=== PATIENT | male | born 1935 | race Caucasian/White ===

== ENCOUNTER 2017-02-13 12:40 | Inpatient (IN) | payer OTHER ==
[2017-02-13 12:46] VITALS: BMI 26.6
[2017-02-13] MEDS ORDERED: SODIUM CHLORIDE 500 ML IV STA ×2 (12:57→13:46)
--- NOTE | 2017-02-13 13:01 | PDOC ---
History of Present Illness - General Chief Complaint: Urinary Problem Stated Complaint: URINE RETENTION Time Seen by Provider: 02/13/17 12:52 History Source: Patient, Family - History of Present Illness Timing/Duration: reports: constant Past History - Past Medical History Allergies/Adverse Reactions: Allergies Allergy/AdvReac Type Severity Reaction Status Date / Time No Known Drug Allergies Allergy Verified 02/13/17 12:46 Home Medications: Ambulatory Orders Metformin HCl [Glucophage] 500 mg PO DAILY 09/04/14 Metoprolol Tartrate 50 mg PO DAILY 09/04/14 Omeprazole [Prilosec] 40 mg PO DAILY 09/04/14 Tamsulosin HCl 0.4 mg PO DAILY 09/04/14 Anemia: No Asthma: No Cancer: No Cardiac Disorders: No CVA: No COPD: No CHF: No Dementia: No Diabetes: Yes GI Disorders: Yes (REFLUX) Disorders: No HTN: Yes Hypercholesterolemia: No Liver Disease: No Seizures: No Thyroid Disease: No - Surgical History Abdominal Surgery: No Appendectomy: No Cardiac Surgery: No Cholecystectomy: No Lung Surgery: No Orthopedic Surgery: No - Psycho/Social/Smoking Cessation Hx Suicidal Ideation: No Smoking History: Never smoked Have you smoked in the past 12 months: No Hx Alcohol Use: No Drug/Substance Use Hx: No Substance Use Type: None Hx Substance Use Treatment: No Review of Systems - Review of Systems Constitutional: No: Chills, Fever ABD/GI: No: Nausea, Vomiting, Abdominal cramping : No: Dysuria, Flank Pain, Hematuria *Physical Exam - Vital Signs Last Vital Signs Temp Pulse Resp BP Pulse Ox 99.0 F 116 H 20 156/67 96 02/13/17 12:41 02/13/17 12:41 02/13/17 12:41 02/13/17 12:41 02/13/17 12:41 - Physical Exam General Appearance: Yes: Appropriately Dressed. No: Apparent Distress HEENT: positive: Normal Voice Neck: positive: Supple Respiratory/Chest: negative: Respiratory Distress Gastrointestinal/Abdominal: positive: Soft. negative: Tender, Distended Musculoskeletal: negative: CVA Tenderness Extremity: positive: Normal Inspection Integumentary: positive: Dry, Warm Neurologic: positive: Fully Oriented, Alert, Normal Mood/Affect ED Treatment Course - LABORATORY CBC & Chemistry Diagram: 02/13/17 11:50 02/13/17 11:50 Medical Decision Making - Medical Decision Making 02/13/17 12:58 81 yo M, h/o HTN, DM, BPH on flomax, BIB daughter for urinary retention. As per patient, for the past 2 days he has been able to urinate but only a small amount comes out and finds himself urinating more frequently. No hematuria, flank pain, nausea, vomiting, fever or chills see exam Urinary retention Possibly 2/2 known h/o BPH, r/o uti -bedolla insertion -labs -ua.cx -discuss dispo w/ pt's urologist 02/13/17 13:18 02/13/17 13:55 100 cc UO w/ bedolla placement. Leukocytosis of 20 with leuk esterase, blood and proteins on UA. Urine culture sent. Will treat for UTI with a dose of Rocephin (no prior sensitivity on record) in ED and discuss disposition with patient's PMD and urologist 02/13/17 14:31 02/13/17 17:34 Dr Maria contacted at 2:30 and at this time, have not heard back from . Hospitalist contacted and pt admitted. 02/13/17 17:43 *DC/Admit/Observation/Transfer Diagnosis at time of Disposition: Urinary retention UTI (urinary tract infection) Qualifiers: Urinary tract infection type: acute cystitis Hematuria presence: without hematuria Qualified Code(s): N30.00 - Acute cystitis without hematuria - Discharge Dispostion Condition at time of disposition: Good Admit: Yes - Referrals Referrals: Willie Ohara MD [Primary Care Provider] -
[2017-02-13 13:17] LABS: MCHC 33.4 g/dl (32.0-35.9); MEAN CELL VOLUME 89.7 fl (80-96); MEAN PLT VOLUME 8.3 fl (7.5-11.1); PLATELET COUNT 205 K/MM3 (134-434); RDW 13.4 % (11.9-15.9); WHITE BLOOD COUNT 20.7 K/mm3 (4.0-10.0)
[2017-02-13 13:25] LABS: URINE APPEARANCE CLOUDY; URINE BILIRUBIN NEGATIVE (NEGATIVE); URINE BLOOD 2+ (NEGATIVE); URINE COLOR YELLOW; URINE GLUCOSE (UA) NEGATIVE (NEGATIVE); URINE KETONE NEGATIVE (NEGATIVE); URINE NITRITE NEGATIVE (NEGATIVE); URINE UROBILINOGEN NEGATIVE mg/dL (0.2-1.0)
[2017-02-13 13:30] LABS: URINE LEUK ESTERASE 2+ (NEGATIVE); URINE PROTEIN 1+ (NEGATIVE)
[2017-02-13 13:32] LABS: URINE BACTERIA RARE /hpf (NONE SEEN); URINE MUCUS RARE; URINE RBC 2 /hpf (0-3); URINE WBC 60 /hpf (3-5)
[2017-02-13 13:50] LABS: ALBUMIN 3.6 g/dl (3.4-5.0); ANION GAP 13 (8-16); CALCIUM 8.9 mg/dL (8.5-10.1); CO2 26 mmol/L (21-32); GLUCOSE,RANDOM 192 mg/dL (74-106)
[2017-02-13 13:54] LABS: ALK PHOS 76 U/L (45-117); BILIRUBIN,TOTAL 0.8 mg/dL (0.2-1.0); CREATININE 1.4 mg/dL (0.7-1.3); SGOT/AST 31 U/L (15-37); SGPT/ALT 35 U/L (12-78); TOT PROT 7.4 g/dl (6.4-8.2)
[2017-02-13] MEDS ORDERED: CEFTRIAXONE 1 GM in DEXTROSE 5%-WATER - 50 ML IVPB ONE (13:55)
[2017-02-13] MEDS ORDERED: CEFTRIAXONE 50 ML ONE (14:04)
[2017-02-13 14:15] LABS: METAMYELOCYTE 2 % (0-2); PLATELET ESTIMATE ADEQUATE (NORMAL)
--- NOTE | 2017-02-13 19:57 | HP ---
Admitting History and Physical - Admission Chief Complaint: urine retention, dysuria History of Present Illness: 81 yo somali speaking M, h/o HTN, DM, BPH on flomax, BIB daughter for urinary retention. Pt reports dysuira x 3 days. he report bilateral flank pain. he reports subj fevers, chills, and rigors. he reports bladder pressure. he reports decreased po intake for 3 days. he denies n/v/d, cough, body aches, sore throat. he denies sob, chest pain, tingling, edema. he denies syncope. he reports following dr shashank baird (urology). pmh/psh- HTN, DM, BPH social- denies alcohol, tobacco. lives with family famhx- mom- cancer(unk) pcp- dr puga urology- dr shashank baird ros neg except for hpi physical gen- in nad, alert hent- at/nc, neisha, neck supple, trachea mid-line, no lymphadenopathy resp- no cough, lung ctab, no ronchi, no wheeze, no cyanosis cards- s1s2 heard, tachy, normal rhythm, extremity pulses palpable, no leg edema gi- soft non-tender, no guarding, no distention, mild ttp over bladder, no rigidity - bedolla in place, scant tono urine in bag, no cvat skin-irregularly thickened lesion to lateral right buttocks with mild redness at base, no rashes psych- cooperative, no agitation neuro- alert oriented, no facial droop, speech clear, cn2-12 grossly intact. intentional hand tremors musk- no back pain, moving all ext spontaneously prob list sirs dm bph htn hyponatremia uti elevated cr ?urine retention a/p- 81 yo somali speaking M, h/o HTN, DM, BPH on flomax, BIB daughter for urinary retention found to have uti and admitted for eval of their emergent condition 1. uti, sirs follow up cultures ivf hydration cont abx (ctx) monitor labs 2. dm ssi f/s diabetic diet hold metformin 2/2 elevated cr 3. ?terrence possibly related to ?sepsis, ?obstructive uropathy fu renal us no prior labs for comparison follow up urine lytes monitor labs 4. bph, ?urinary retention fu urology consult cont flomax maintain bedolla 5. hyponatremia probably volume depletion +/- hyperglycemia pt reports decreased po intake x 3 days does no look overloaded on exam fu bmp 6. htn cont home meds dvt prophy scd, oob, hep sq fen gentle fluids, diabetic diet dispo- requires >2mn stay for uti, sepsis History Source: Patient, Family Member Limitations to Obtaining History: Language Barrier - Smoking History Smoking history: Never smoked Have you smoked in the past 12 months: No - Alcohol/Substance Use Hx Alcohol Use: No Home Medications - Allergies Allergies/Adverse Reactions: Allergies Allergy/AdvReac Type Severity Reaction Status Date / Time No Known Drug Allergies Allergy Verified 02/13/17 12:46 - Home Medications Home Medications: Ambulatory Orders Metformin HCl [Glucophage] 500 mg PO DAILY 09/04/14 Metoprolol Tartrate 50 mg PO DAILY 09/04/14 Omeprazole [Prilosec] 40 mg PO DAILY 09/04/14 Tamsulosin HCl 0.4 mg PO DAILY 09/04/14 Physical Examination Vital Signs: Vital Signs Temperature 98 F 02/13/17 16:59 Pulse Rate 98 H 02/13/17 16:59 Respiratory Rate 18 02/13/17 16:59 Blood Pressure 140/68 02/13/17 16:59 O2 Sat by Pulse Oximetry (%) 96 02/13/17 16:59 Visit type - Emergency Visit Emergency Visit: Yes ED Registration Date: 02/13/17 Care time: The patient presented to the Emergency Department on the above date and was hospitalized for further evaluation of their emergent condition. - New Patient This patient is new to me today: Yes Date on this admission: 02/14/17 - Critical Care Critical Care patient: No
[2017-02-13] MEDS ORDERED: ACETAMINOPHEN 325 MG TABLET (FP) PO PRN (20:03)
[2017-02-13] MEDS ORDERED: ONDANSETRON 4 MG/2 ML VIAL IVPB PRN (20:03)
[2017-02-13] MEDS ORDERED: SODIUM CHLORIDE 1,000 ML IV STA (20:13)
[2017-02-13] MEDS ORDERED: SODIUM CHLORIDE 1,000 ML IV SCH (20:15)
[2017-02-13] MEDS: INSULIN SLIDING SCALE (NOVOLOG) 1 VIAL SQ SCH (22:19)
[2017-02-13 22:20] LABS: ANION GAP 9 (8-16); CALCIUM 8.6 mg/dL (8.5-10.1); CO2 26 mmol/L (21-32); CREATININE 1.1 mg/dL (0.7-1.3); GLUCOSE,RANDOM 154 mg/dL (74-106)
[2017-02-14] MEDS: INSULIN SLIDING SCALE (NOVOLOG) 1 VIAL SQ SCH ×4 (06:54→21:47)
[2017-02-14 08:14] LABS: BASOPHIL 0.3 % (0-2.0); EOSINOPHIL 0.1 % (0-4.5); MCH 30.3 pg (25.7-33.7); MCHC 33.9 g/dl (32.0-35.9); MEAN CELL VOLUME 89.4 fl (80-96); PLATELET COUNT 184 K/MM3 (134-434); RDW 13.7 % (11.9-15.9); WHITE BLOOD COUNT 17.9 K/mm3 (4.0-10.0)
[2017-02-14 08:39] LABS: ANION GAP 10 (8-16); CALCIUM 8.2 mg/dL (8.5-10.1); CO2 26 mmol/L (21-32); GLUCOSE,RANDOM 104 mg/dL (74-106)
[2017-02-14 08:41] LABS: PHOSPHOROUS 2.3 mg/dL (2.5-4.9)
--- NOTE | 2017-02-14 08:51 | PN ---
Physical Exam: SUBJECTIVE: Patient seen and examined at the bedside. Denies any pain, shortness of breath or suprapubic discomfort. OBJECTIVE: Lactic acid 1.1 WBC trending down to 18.9 Remains afebrile Urine culture pending/blood cultures pending UA: +1 protein, +2 blood, +2 leuk est. Vital Signs Period Temp Pulse Resp BP Sys/Rutledge Pulse Ox Last 24 Hr 97.7 F-97.8 F 92-98 20-20 125-126/62-63 96 GENERAL: The patient is awake, alert, and fully oriented, in no acute distress. HEAD: Normal with no signs of trauma. EYES: PERRL, extraocular movements intact, sclera anicteric, conjunctiva clear. No ptosis. ENT: Ears normal, nares patent, oropharynx clear without exudates, moist mucous membranes. NECK: Trachea midline, full range of motion, supple. LUNGS: Scattered expiratory wheezing, patient denies shortness of breath - IVF stopped HEART: Regular rate and rhythm, S1, S2 without murmur ABDOMEN: Soft, nontender, nondistended, normoactive bowel sounds, no guarding, no rebound, no hepatosplenomegaly, no masses. EXTREMITIES: 2+ pulses, warm, well-perfused, no edema. NEUROLOGICAL:Normal speech, gait not observed. PSYCH: Normal mood, normal affect. SKIN: Warm, dry, normal turgor, no rashes or lesions noted Laboratory Results - last 24 hr 02/13/17 02/13/17 02/13/17 20:20 21:49 22:18 Sodium 132 L Potassium 4.0 Chloride 97 L Carbon Dioxide 26 Anion Gap 9 BUN 18 D Creatinine 1.1 D POC Glucometer 152 Random Glucose 154 H Lactic Acid 1.1 Calcium 8.6 Phosphorus Magnesium 02/14/17 02/14/17 06:20 06:53 Sodium 135 L Potassium 3.9 Chloride 99 Carbon Dioxide 26 Anion Gap 10 BUN 18 Creatinine 1.0 POC Glucometer 112 Random Glucose 104 D Lactic Acid Calcium 8.2 L Phosphorus 2.3 L Magnesium 2.0 Active Medications Generic Name Dose Route Start Last Admin Trade Name Freq PRN Reason Stop Dose Admin Acetaminophen 650 mg 02/13/17 20:03 Tylenol - PO Q4H PRN FEVER OR PAIN Heparin Sodium (Porcine) 5,000 unit 02/14/17 10:00 Heparin - SQ BID DELICIA Ceftriaxone Sodium 50 mls @ 100 mls/hr 02/14/17 10:00 Rocephin 1gm Ivpb (Pre-Docked) IVPB DAILY [facility] Sodium Chloride 1,000 mls @ 75 mls/hr 02/13/17 20:15 02/13/17 22:17 Normal Saline - IV 75 mls/hr ASDIR DELICIA Administration Insulin Aspart 1 vial 02/13/17 22:00 02/14/17 06:54 Novolog Vial Sliding Scale - SQ Not Given ACHS [facility] Protocol Metoprolol Succinate 50 mg 02/14/17 10:00 Toprol Xl - PO DAILY DELICIA Ondansetron HCl 4 mg 02/13/17 20:03 Zofran Injection IVPB Q6H PRN NAUSEA Pantoprazole Sodium 40 mg 02/14/17 10:00 Protonix - PO DAILY DELICIA Tamsulosin HCl 0.4 mg 02/14/17 10:00 Flomax - PO DAILY DELICIA ASSESSMENT/PLAN: Patient is a 81 year old male with a significant past medical history of hypertension, diabetes mellitus, and BPH. He presented to the ED on 02/13/2017 for urinary retention and was found to have UTI. On admission his lactic acid remained normal at 1.1, but WBC @ 20.7 and he was tachycardic at 116. Imaging: Chest Xray 02/14/17: no acute pathology, clear lungs, normal shane, normal heart Renal ultrasound 02/13/2017: negative exam : UTI/Sepsis: A/P: Elevated wbc on admission with tachycardia WBC trending down, now with mild tachycardia in 90s UA +protein, 2+ blood, cloudy urine, 2+leuk est. On Ceftriaxone (02/13- ) UC pending, blood cultures pending On Flomax Urology consult GISELA - resolved Creatinine 1.4>1.1, d/c ivf BPH A/P: On Flomax Sarmiento catheter Endocrine: Diabetes Mellitus A/P: Diabetic diet, monitor BGMs Novolog sliding scale Cardiology: Hypertension A/P: On Metoprolol, monitor BP F.E.N. Fluids: tolerating PO, d/c fluids secondary to scattered wheezing Electrolytes: NA 135, monitor Prophylaxis: DVT: Heparin Gi: Protonix Disposition: Requires inpatient hospitalization for acute condition. Full code.
[2017-02-14] MEDS ORDERED: CEFTRIAXONE 50 ML IVPB SCH (10:00)
[2017-02-14] MEDS ORDERED: DEXTROSE 5%-WATER - 50 ML IVPB ONE (10:28)
[2017-02-14] MEDS ORDERED: cefTRIAXone SODIUM 1 GM VIAL ONE (10:28)
[2017-02-14] MEDS: TAMSULOSIN HCL 0.4 MG CAP.ER.24H (FP) PO SCH (10:33)
[2017-02-14] MEDS: PANTOPRAZOLE 40 MG TABLET (FP) PO SCH (10:33)
[2017-02-14] MEDS: HEPARIN NA (PORCINE) 5,000 UNITS/ML 1ML VIAL SQ SCH ×2 (10:33→21:47)
[2017-02-14] MEDS: METOPROLOL SUCCINATE 50 MG TAB.SR.24H (FP) PO SCH (10:33)
[2017-02-14] MEDS: CEFTRIAXONE 1 GM in DEXTROSE 5%-WATER - 50 ML IVPB SCH (10:33)
--- NOTE | 2017-02-14 17:47 | EKG ---
Test Reason : Blood Pressure : / mmHG Vent. Rate : 097 BPM Atrial Rate : 097 BPM P-R Int : 180 ms QRS Dur : 086 ms QT Int : 334 ms P-R-T Axes : 064 024 039 degrees QTc Int : 424 ms NORMAL SINUS RHYTHM POSSIBLE LEFT ATRIAL ENLARGEMENT NONSPECIFIC ST ABNORMALITY BORDERLINE ECG NO PREVIOUS ECGS AVAILABLE Confirmed by ALEXANDR CHANDRA MD ([id number]) on 02/14/2017 5:46:56 PM Referred By: Confirmed By:ALEXANDR CHANDRA MD
[2017-02-15] MEDS: INSULIN SLIDING SCALE (NOVOLOG) 1 VIAL SQ SCH ×4 (06:57→21:11)
[2017-02-15 07:57] LABS: BASOPHIL 0.2 % (0-2.0); MCH 29.8 pg (25.7-33.7); MCHC 33.6 g/dl (32.0-35.9); MEAN CELL VOLUME 88.9 fl (80-96); NEUTROPHILS 76.1 % (42.8-82.8); PLATELET COUNT 217 K/MM3 (134-434); RDW 13.8 % (11.9-15.9); WHITE BLOOD COUNT 15.4 K/mm3 (4.0-10.0)
[2017-02-15 08:26] LABS: ALBUMIN 3.1 g/dl (3.4-5.0); ANION GAP 10 (8-16); CALCIUM 8.4 mg/dL (8.5-10.1); CO2 26 mmol/L (21-32); GLUCOSE,RANDOM 126 mg/dL (74-106); SGOT/AST 30 U/L (15-37); SGPT/ALT 40 U/L (12-78)
[2017-02-15 08:28] LABS: ALK PHOS 90 U/L (45-117); BILIRUBIN,TOTAL 0.8 mg/dL (0.2-1.0); CREATININE 0.9 mg/dL (0.7-1.3); TOT PROT 6.6 g/dl (6.4-8.2)
[2017-02-15] MEDS ORDERED: SODIUM CHLORIDE 1,000 ML IV SCH (09:00)
--- NOTE | 2017-02-15 09:00 | PN ---
Physical Exam: SUBJECTIVE: Patient seen and examined. States he feels well, denies any chest or shortness of breath. OBJECTIVE: Hyponatremia @134 on elderly patient - NS 1 liters @100cc x 1 with Repeat sodium in a.m. bedolla with clear yellow urine, d/c bedolla catheter, start voiding trial - monitor intake and output Started on Bactrim Ds (Sulfamethoxzole/Trimethoprim) tonight will need an additional 7 days on d/c Vital Signs Period Temp Pulse Resp BP Sys/Rutledge Pulse Ox Last 24 Hr 97.7 F-98.6 F 81-110 19-20 118-152/60-77 96-99 GENERAL: The patient is awake, alert, and fully oriented, in no acute distress. HEAD: Normal with no signs of trauma. EYES: PERRL, extraocular movements intact, sclera anicteric, conjunctiva clear. No ptosis. ENT: Ears normal, nares patent, oropharynx clear without exudates, moist mucous membranes. NECK: Trachea midline, full range of motion, supple. LUNGS: clear to auscultation bilaterally, no accessory muscle use. HEART: Regular rate and rhythm, S1, S2 without murmur ABDOMEN: Soft, nontender, nondistended, normoactive bowel sounds, no guarding, no rebound, no hepatosplenomegaly, no masses. EXTREMITIES: 2+ pulses, warm, well-perfused, no edema. NEUROLOGICAL:Normal speech, gait not observed. PSYCH: Normal mood, normal affect. SKIN: Warm, dry, normal turgor, no rashes or lesions noted Laboratory Results - last 24 hr 02/14/17 02/14/17 02/14/17 06:20 08:50 08:59 WBC 17.9 H RBC 4.14 Hgb 12.6 Hct 37.0 MCV 89.4 MCH 30.3 MCHC 33.9 RDW 13.7 Plt Count 184 MPV 9.0 Neutrophils % 78.0 Lymphocytes % 8.9 Monocytes % 12.7 H D Eosinophils % 0.1 Basophils % 0.3 Sodium Potassium Chloride Carbon Dioxide Anion Gap BUN Creatinine Creat Clearance w eGFR POC Glucometer Random Glucose Calcium Total Bilirubin AST ALT Alkaline Phosphatase Total Protein Albumin Urine Creatinine Cancelled 117.0 02/14/17 02/14/17 02/14/17 11:53 17:55 21:43 WBC RBC Hgb Hct MCV MCH MCHC RDW Plt Count MPV Neutrophils % Lymphocytes % Monocytes % Eosinophils % Basophils % Sodium Potassium Chloride Carbon Dioxide Anion Gap BUN Creatinine Creat Clearance w eGFR POC Glucometer 143 137 134 Random Glucose Calcium Total Bilirubin AST ALT Alkaline Phosphatase Total Protein Albumin Urine Creatinine 02/15/17 02/15/17 02/15/17 06:56 07:00 07:00 WBC 15.4 H RBC 4.38 Hgb 13.1 Hct 39.0 MCV 88.9 MCH 29.8 MCHC 33.6 RDW 13.8 Plt Count 217 MPV 9.0 Neutrophils % 76.1 Lymphocytes % 11.8 D Monocytes % 10.9 H Eosinophils % 1.0 D Basophils % 0.2 Sodium 134 L Potassium 4.1 Chloride 98 Carbon Dioxide 26 Anion Gap 10 BUN 18 Creatinine 0.9 Creat Clearance w eGFR > 60 POC Glucometer 128 Random Glucose 126 H D Calcium 8.4 L Total Bilirubin 0.8 AST 30 ALT 40 Alkaline Phosphatase 90 Total Protein 6.6 Albumin 3.1 L Urine Creatinine Active Medications Generic Name Dose Route Start Last Admin Trade Name Freq PRN Reason Stop Dose Admin Acetaminophen 650 mg 02/13/17 20:03 Tylenol - PO Q4H PRN FEVER OR PAIN Heparin Sodium (Porcine) 5,000 unit 02/14/17 10:00 02/14/17 21:47 Heparin - SQ 5,000 unit BID DELICIA Administration Ceftriaxone Sodium 1 gm/ 50 mls @ 100 mls/hr 02/14/17 10:30 02/14/17 10:33 Dextrose IVPB 100 mls/hr DAILY DELICIA Administration Sodium Chloride 1,000 mls @ 100 mls/hr 02/15/17 09:00 Normal Saline - IV 02/16/17 08:58 ASDIR DELICIA Insulin Aspart 1 vial 02/13/17 22:00 02/15/17 06:57 Novolog Vial Sliding Scale - SQ Not Given ACHS [facility] Protocol Metoprolol Succinate 50 mg 02/14/17 10:00 02/14/17 10:33 Toprol Xl - PO 50 mg DAILY DELICIA Administration Ondansetron HCl 4 mg 02/13/17 20:03 Zofran Injection IVPB Q6H PRN NAUSEA Pantoprazole Sodium 40 mg 02/14/17 10:00 02/14/17 10:33 Protonix - PO 40 mg DAILY DELICIA Administration Tamsulosin HCl 0.4 mg 02/14/17 10:00 02/14/17 10:33 Flomax - PO 0.4 mg DAILY DELICIA Administration ASSESSMENT/PLAN: Patient is a 81 year old male with a significant past medical history of hypertension, diabetes mellitus, and BPH. He presented to the ED on 02/13/2017 for urinary retention and was found to have UTI. On admission his lactic acid remained normal at 1.1, but WBC @ 20.7 and he was tachycardic at 116. Imaging: Chest Xray 02/14/17: no acute pathology, clear lungs, normal shane, normal heart Renal ultrasound 02/13/2017: negative exam : UTI/Sepsis - improving A/P: Elevated wbc on admission with tachycardia WBC trending down, tachycardia now resolved UA +protein, 2+ blood, cloudy urine, 2+leuk est, Urine culture + Citrobacter Koseri - sensitive to Bactrim Ds, to started PO tonight and to continue for 7 days on d/c, Received 3 doses of Ceftriaxone 1 gram x 3 doses Discontinue bedolla catheter and start voiding trial, monitor intake and output - bladder scan q shift GISELA - resolved Creatinine 1.4>0.1 Electrolytes Imbalance: Hyponatremia on elderly male NA 134, treat with 1 liter of NS, recheck CMP in a.m. BPH - chronic A/P: On Flomax d/c Bedolla catheter Endocrine: Diabetes Mellitus - chronic A/P: Diabetic diet, monitor BGMs Novolog sliding scale Cardiology: Hypertension A/P: On Metoprolol, monitor BP F.E.N. Fluids: tolerating PO, Electrolytes: Hyponatremia on elderly male NA 134, treat with 1 liter of NS, recheck CMP in a.m. Prophylaxis: DVT: Heparin Gi: Protonix Disposition: Anticipate discharge in a.m. pending voiding trial and electrolyte correction. Follow up with urology and PCP as outpatient. Visit type - Emergency Visit Emergency Visit: Yes ED Registration Date: 02/13/17 Care time: The patient presented to the Emergency Department on the above date and was hospitalized for further evaluation of their emergent condition. - New Patient This patient is new to me today: No - Critical Care Critical Care patient: No - Discharge Referral Referred to [facility] Med P.C.: No
[2017-02-15] MEDS ORDERED: cefTRIAXone SODIUM 1 GM VIAL ONE (10:01)
[2017-02-15] MEDS ORDERED: DEXTROSE 5%-WATER - 50 ML IVPB ONE (10:01)
[2017-02-15] MEDS: HEPARIN NA (PORCINE) 5,000 UNITS/ML 1ML VIAL SQ SCH ×2 (10:02→21:11)
[2017-02-15] MEDS: METOPROLOL SUCCINATE 50 MG TAB.SR.24H (FP) PO SCH (10:02)
[2017-02-15] MEDS: PANTOPRAZOLE 40 MG TABLET (FP) PO SCH (10:02)
[2017-02-15] MEDS: TAMSULOSIN HCL 0.4 MG CAP.ER.24H (FP) PO SCH (10:03)
[2017-02-15] MEDS: CEFTRIAXONE 1 GM in DEXTROSE 5%-WATER - 50 ML IVPB SCH (10:03)
[2017-02-15] MEDS ORDERED: INSULIN (NOVOLOG) ASPART 100 UNITS/ML 10ML VIAL ONE ×2 (11:50→21:04)
--- NOTE | 2017-02-15 16:30 | CONSULT ---
Consult - text type - Consultation Consultation Note: CC: uti with retention HPI: Patient is an 81 year old male with history of DM, htn, and bph. Patient has been well controlled on flomax. Patient developed fevers, chill, with difficulty emptying his bladder. The patient denies gross hematuria. He did complain of bilateral flank pain without nausea or vomiting. PE abd-bladder not palpable; no CVAT genitalia-nl phallus/testes rectal 2-3 + prostate with asymmetry; no fluctuance renal sonogram and labs reviewed imp uti bph urinary retention plan continue antibiotics continue flomax d/c bedolla and give prolonged trial of voiding discussed with family x 25 minutes
[2017-02-15] MEDS: SULFAMETHOXAZOLE/TRIMETHOPRIM 800MG/160MG D.S. TABLET PO SCH (21:12)
[2017-02-16] MEDS: INSULIN SLIDING SCALE (NOVOLOG) 1 VIAL SQ SCH ×2 (06:16→12:23)
[2017-02-16 08:07] VITALS: BP 144/79; PULSE 83; TEMP 98.5
[2017-02-16 08:15] LABS: MCHC 33.5 g/dl (32.0-35.9); MEAN CELL VOLUME 89.5 fl (80-96); MEAN PLT VOLUME 8.8 fl (7.5-11.1); PLATELET COUNT 238 K/MM3 (134-434); RDW 13.9 % (11.9-15.9); WHITE BLOOD COUNT 11.9 K/mm3 (4.0-10.0)
[2017-02-16 08:41] LABS: ALBUMIN 2.9 g/dl (3.4-5.0); ANION GAP 7 (8-16); CALCIUM 8.6 mg/dL (8.5-10.1); CO2 26 mmol/L (21-32); GLUCOSE,RANDOM 126 mg/dL (74-106); SGPT/ALT 61 U/L (12-78)
[2017-02-16 08:43] LABS: ALK PHOS 107 U/L (45-117); BILIRUBIN,TOTAL 0.4 mg/dL (0.2-1.0); CREATININE 0.9 mg/dL (0.7-1.3); SGOT/AST 43 U/L (15-37); TOT PROT 6.5 g/dl (6.4-8.2)
[2017-02-16] MEDS: SULFAMETHOXAZOLE/TRIMETHOPRIM 800MG/160MG D.S. TABLET PO SCH (09:47)
[2017-02-16] MEDS: PANTOPRAZOLE 40 MG TABLET (FP) PO SCH (09:48)
[2017-02-16] MEDS: HEPARIN NA (PORCINE) 5,000 UNITS/ML 1ML VIAL SQ SCH (09:48)
[2017-02-16] MEDS: METOPROLOL SUCCINATE 50 MG TAB.SR.24H (FP) PO SCH (09:48)
[2017-02-16] MEDS: TAMSULOSIN HCL 0.4 MG CAP.ER.24H (FP) PO SCH (09:48)
[2017-02-16 10:34] LABS: PLATELET ESTIMATE ADEQUATE (NORMAL)
--- NOTE | 2017-02-16 11:24 | DS ---
Physical Exam: SUBJECTIVE: Patient seen and examined sitting on edge of bed. Voices no complaints, feels well. OBJECTIVE: Vital Signs Period Temp Pulse Resp BP Sys/Rutledge Pulse Ox Last 24 Hr 97.7 F-99.3 F 75-86 16-20 112-152/60-79 97 PHYSICAL EXAM GENERAL: The patient is awake, alert, and fully oriented, in no acute distress. HEAD: Normal with no signs of trauma. EYES: PERRL, extraocular movements intact, sclera anicteric, conjunctiva clear. HEART: Regular rate and rhythm, S1, S2 without murmur, rub or gallop. ABDOMEN: Soft, nontender, nondistended, normoactive bowel sounds, no guarding, no rebound EXTREMITIES: 2+ pulses, warm, well-perfused, no edema. NEUROLOGICAL: Cranial nerves II through XII grossly intact. Normal speech, gait not observed. LABS Laboratory Results - last 24 hr 02/15/17 02/15/17 02/15/17 11:33 17:12 21:09 WBC RBC Hgb Hct MCV MCH MCHC RDW Plt Count MPV Neutrophils % Lymphocytes % Monocytes % Eosinophils % Basophils % Band Neutrophils Myelocytes Differential Comment Platelet Estimate Sodium Potassium Chloride Carbon Dioxide Anion Gap BUN Creatinine Creat Clearance w eGFR POC Glucometer 237 136 188 Random Glucose Calcium Total Bilirubin AST ALT Alkaline Phosphatase Total Protein Albumin 02/16/17 02/16/17 02/16/17 06:14 07:00 07:30 WBC 11.9 H RBC 4.24 Hgb 12.7 Hct 38.0 MCV 89.5 MCH 30.0 MCHC 33.5 RDW 13.9 Plt Count 238 MPV 8.8 Neutrophils % 72.0 Lymphocytes % 17.0 D Monocytes % 7.0 Eosinophils % 1.0 Basophils % 0.0 Band Neutrophils 2.0 D Myelocytes 1 Differential Comment Manual diff done Platelet Estimate Adequate Sodium 133 L Potassium 4.2 Chloride 100 Carbon Dioxide 26 Anion Gap 7 L BUN 14 D Creatinine 0.9 Creat Clearance w eGFR > 60 POC Glucometer 128 Random Glucose 126 H Calcium 8.6 Total Bilirubin 0.4 D AST 43 H D ALT 61 D Alkaline Phosphatase 107 Total Protein 6.5 Albumin 2.9 L HOSPITAL COURSE: Date of Admission:02/13/17 Date of Discharge: 02/16/17 Pre hospital course 81-year old male with a significant PMH of HTN, NIDDM, and BPH. He presented to the ED on 02/13/2017 for urinary retention and was found to have UTI. On admission WBC 20.7k, tachycardic to 116. Imaging Chest Xray 02/14/17: no acute pathology, clear lungs, normal shane, normal heart Renal ultrasound 02/13/2017: negative exam Hospital course Sepsis secondary to Citrobacter UTI --remained afebrile --WBC trended down to 11.9k --received ceftriaxone x 3 doses; culture sensitive to Bactrim, started and discharged with prescription to complete 7 days of treatment Urinary retention, resolved --voiding freely after bedolla removal BPH --continued Flomax GISELA, resolved --Cr 1.4 on admission, 0.9 at time of discharge Hyponatremia --Na 129 on admission, improved to 135, 133 at time of discharge NIDDM --Novolog sliding scale coverage Hypertension --continued Toprol XL Minutes to complete discharge: 35 Discharge Summary Reason For Visit: URINARY TRACT INFECTION Current Active Problems UTI (urinary tract infection) (Acute) Urinary retention (Acute) Condition: Improved - Instructions Diet, Activity, Other Instructions: Mr. Amezcua: You were admitted to [facility] on 02/13/2017 with a urinary tract infection and treated with Ceftriaxone IV antibiotics. You were started on Bactrim Ds on 02/15 for 7 more days (02/15 to February 22). Take this medication as ordered, you make take it with food. We have also ordered an medication called ACIDOPHILLUS that will help you not have any abdominal discomfort or diarrhea when you are on the antibiotics. Please see your primary care doctor within 1 week after discharge so that he can check your labs. Please return to the ER with any new or persistent symptoms. Please call us with any questions that you may have. [facility] [phone] Referrals: Willie Ohara MD [Primary Care Provider] - Disposition: HOME - Home Medications Comprehensive Discharge Medication List: Ambulatory Orders Metformin HCl [Glucophage] 500 mg PO DAILY 09/04/14 Metoprolol Tartrate 50 mg PO DAILY 09/04/14 Omeprazole [Prilosec] 40 mg PO DAILY 09/04/14 Tamsulosin HCl 0.4 mg PO DAILY 09/04/14 Lactobacillus Acidophilus [Acidophilus] 100 mg PO DAILY #7 capsule 02/15/17 Metoprolol Succinate [Toprol XL -] 50 mg PO DAILY tab 02/15/17 Sulfamethoxazole/Trimethoprim [Bactrim DS -] 1 each PO BID #14 tablet 02/15/17 This patient is new to me today: Yes Date on this admission: 02/18/17 Emergency Visit: Yes ED Registration Date: 02/13/17 Care time: The patient presented to the Emergency Department on the above date and was hospitalized for further evaluation of their emergent condition. Critical Care patient: No - Discharge Referral Referred to [facility] Med P.C.: No
== END 2017-02-16 14:04 | disposition home or self-care (01) | DRG 720 ==
LOC: JER 12:40 → JERBED 17:43 → J8W 19:59
PROVIDERS: ADMIT Internal Medicine; ATTEND Nurse Practitioner Acute Care
DX: A41.9 Sepsis, unspecified organism (principal); N40.1 Benign prostatic hyperplasia with lower urinary tract symptoms; R33.8 Other retention of urine; N17.9 Acute kidney failure, unspecified; E87.1 Hypo-osmolality and hyponatremia; E11.9 Type 2 diabetes mellitus without complications; I10 Essential (primary) hypertension; N39.0 Urinary tract infection, site not specified; B96.89 Other specified bacterial agents as the cause of diseases classified elsewhere
CPT/HCPCS: 36415; 71010-TC; 76775-TC; 80048; 80053; 81003; 81015; 82570; 83605; 83735; 84100; 85025; 87040; 87086; 87186; 93005; 93010; 99283-25; J1644

== ENCOUNTER 2018-09-15 12:10 | Emergency (ER) | payer OTHER ==
[2018-09-15 12:31] VITALS: TEMP 98.1; BMI 27.6
[2018-09-15] MEDS ORDERED: SODIUM CHLORIDE 0.9% 1000 ML INFUS.BAG IV ONE (12:56)
[2018-09-15] MEDS ORDERED: FAMOTIDINE 20 MG/50 ML IVPB 20 MG/50 ML MG IVPB ONE ×2 (12:56→13:10)
--- NOTE | 2018-09-15 13:10 | PDOC ---
History of Present Illness - General Chief Complaint: Respiratory Stated Complaint: SOB Time Seen by Provider: 09/15/18 12:33 History Source: Patient, Family Exam Limitations: No Limitations - History of Present Illness Initial Comments: 09/15/18 13:00 The patient is an 82M with a PMH of HTN, DM, BPH who presents to the ER with complaints of chest pain and abdominal pain. The patient states that he developed sudden onset, intermittent, nonradiating chest pain this morning. The pain is not associated with trauma, exertion, or movements. The pain is reproducible when the patient pushes on his chest. The patient also states that he develops shortness of breath with the chest pain and also gets short of breath when exerting himself. He denies nausea, vomiting, diaphoresis, numbness , tingling or weakness, fever, chills. He also admits to 1 month of intermittent epigastric and LUQ abdominal pressure, which radiates to his back. He denies nausea and vomiting with this pain but admits to frequently being constipated. Past History - Past Medical History Allergies/Adverse Reactions: Allergies Allergy/AdvReac Type Severity Reaction Status Date / Time No Known Drug Allergies Allergy Verified 09/15/18 12:28 Home Medications: Ambulatory Orders Metformin HCl [Glucophage] 1,000 mg PO DAILY 09/04/14 Tamsulosin HCl 0.4 mg PO DAILY 09/04/14 Metoprolol Succinate [Toprol XL -] 50 mg PO DAILY tab 02/15/17 Anemia: No Asthma: No Cancer: No Cardiac Disorders: No CVA: No COPD: No CHF: No Dementia: No Diabetes: Yes GI Disorders: Yes (REFLUX) Disorders: No HTN: Yes Hypercholesterolemia: No Liver Disease: No Seizures: No Thyroid Disease: No - Surgical History Abdominal Surgery: No Appendectomy: No Cardiac Surgery: No Cholecystectomy: No Lung Surgery: No Orthopedic Surgery: No - Suicide/Smoking/Psychosocial Hx Smoking History: Smoker current status UNK Have you smoked in the past 12 months: No Hx Alcohol Use: No Drug/Substance Use Hx: No Substance Use Type: None Hx Substance Use Treatment: No Review of Systems - Review of Systems Able to Perform ROS?: Yes Comments:: 09/15/18 13:39 GENERAL/CONSTITUTIONAL: No fever or chills. No weakness. HEAD, EYES, EARS, NOSE AND THROAT: No change in vision. No ear pain or discharge. No sore throat. CARDIOVASCULAR: Positive for CP. No palpitations or lightheadedness. RESPIRATORY: Positive for SOB. No cough, wheezing, or hemoptysis. GASTROINTESTINAL: Positive for abdominal pain and constipation. No nausea, vomiting, or diarrhea. GENITOURINARY: No dysuria, frequency, hematuria, or change in urination. MUSCULOSKELETAL: No joint or muscle swelling or pain. No neck or back pain. SKIN: No rash or lesions. NEUROLOGIC: No headache, numbness, tingling, focal weakness, loss of consciousness, or change in strength/sensation. Is the patient limited Algerian proficient: No *Physical Exam - Vital Signs Last Vital Signs Temp Pulse Resp BP Pulse Ox 98.1 F 108 H 20 163/65 99 09/15/18 12:30 09/15/18 12:30 09/15/18 12:30 09/15/18 12:30 09/15/18 12:30 - Physical Exam Comments: 09/15/18 13:40 GENERAL: Well developed, well nourished. Awake and alert. No acute distress. HEENT: Normocephalic, atraumatic. Hearing grossly normal. Moist mucous membranes. PERRLA, EOMI. No conjunctival pallor. Sclera are non-icteric. NECK: Supple. Full ROM. No JVD. CARDIOVASCULAR: Regular rate and rhythm. No murmurs, rubs, or gallops. TTP over L anterior/inferior ribs. PULMONARY: No evidence of respiratory distress. Lungs clear to auscultation bilaterally. No wheezing, rales or rhonchi. ABDOMINAL: Soft. TTP over epigastrium and LUQ. Negative Muir's. Non- distended. No rebound or guarding. GENITOURINARY: R CVA tenderness. MUSCULOSKELETAL: Normal range of motion at all joints. No bony deformities or tenderness. EXTREMITIES: No cyanosis. No clubbing. No edema. No calf tenderness or swelling. SKIN: Warm and dry. Normal capillary refill. No rashes. No jaundice. NEUROLOGICAL: Alert, awake, appropriate. Cranial nerves 2-12 grossly intact. Normal speech. Gait is normal without ataxia. PSYCHIATRIC: Cooperative. Good eye contact. Appropriate mood and affect. Moderate Sedation - Procedure Monitoring Vital Signs: Procedure Monitoring Vital Signs Temperature 98.1 F 09/15/18 12:30 Pulse Rate 108 H 09/15/18 12:30 Respiratory Rate 20 09/15/18 12:30 Blood Pressure 163/65 09/15/18 12:30 O2 Sat by Pulse Oximetry (%) 99 09/15/18 12:30 Heart Score/ECG Review - History History: Slightly suspicious - Electrocardiogram EKG: Normal - Age Age: >/= 65 - Risk Factors Risk Factors Heart Score: Yes Hx Hypertension, Yes Hx Diabetes Based on the list above the patient has:: 1-2 risk factors - Troponin Troponin: </= normal limit - Score Heart Score - Total: 3 #1 ECG reviewed & interpreted by me at: 13:41 General ECG Interpretation: Sinus Rhythm, Normal Rate, Normal Intervals, No acute ischemic changes Compared to previous ECG there are: No significant change 09/15/18 13:44 NSR vent rate 90 TX 178 QRS 86 QTc 393 No STD or ALONSO No signs of acute ischemia ED Treatment Course - LABORATORY CBC & Chemistry Diagram: 09/15/18 12:54 09/15/18 12:54 - RADIOLOGY Radiology Studies Ordered: Category Date Time Status ABDOMEN & PELVIS CT WITH CONTR [CT] Stat CT Scan 09/15/18 12:55 Ordered CHEST PA & LAT [RAD] Stat Radiology 09/15/18 12:55 Ordered Medical Decision Making - Medical Decision Making 09/15/18 13:45 The patient is an 82M with a PMH of HTN, DM, BPH who presents with 1 day of CP that is atypical as it is reproducible. He admits to SOB with the CP making it concerning for ACS. Pt also has abdominal tenderness. Will order labs and give fluids/pepcid. Pending labs, XR, and CTAP. Pt is well appearing otherwise with stable vitals. EKG unremarkable. 09/15/18 14:38 CBC, CMP, troponin, UA negative. CXR negative on preliminary read. Pending CTAP. 09/15/18 15:49 HEART score of 3. Will repeat trop and d/c home if negative. 09/15/18 17:28 Troponin negative x 2. Pending CTAP. Will d/c with PCP f/u. *DC/Admit/Observation/Transfer Diagnosis at time of Disposition: Chest pain, atypical - Discharge Dispostion Disposition: HOME Condition at time of disposition: Stable Decision to Admit order: No - Referrals - Patient Instructions Printed Discharge Instructions: DI for Atypical Chest Pain, DI for Constipation Additional Instructions: Please follow up with your primary care physician in 2-3 days. Please return to the ER if you have any signs or symptoms of chest pain, shortness of breath, uncontrollable fever, chills, nausea, vomiting, numbness, tingling, or weakness in any part of your body, changes in vision, or slurred speech. Please take your medications as prescribed. Please return to the ER if symptoms persist, worsen, or new symptoms arise. Por favor collin un seguimiento con maurice mdico de atencin primaria en 2-3 walden. Regrese a la jose de emergencias si tiene signos o sntomas de dolor en el pecho , dificultad para respirar, fiebre incontrolable, escalofros, nuseas, vmitos , entumecimiento, hormigueo o debilidad en alguna parte de maurice cuerpo, cambios en la visin o dificultad para hablar. Por favor, tome bhaskar medicamentos segn lo prescrito. Regrese a la jose de emergencias si los sntomas persisten, empeoran o surgen nuevos sntomas. Print Language: TURKMEN - Post Discharge Activity
[2018-09-15 13:14] LABS: BASO % 0.4 % (0-2.0); EOS % 0.4 % (0-4.5); HEMOGLOBIN 13.4 GM/dL (11.7-16.9); LYMPH % 17.1 % (8-40); MCH 31.2 pg (25.7-33.7); MCHC 34.2 g/dl (32.0-35.9); MEAN CELL VOLUME 91.3 fl (80-96); MEAN PLT VOLUME 8.4 fl (7.5-11.1); MONO % 7.5 % (3.8-10.2); NEUT % 74.6 % (42.8-82.8); PLATELET COUNT 279 K/MM3 (134-434); RBC 4.28 M/mm3 (4.00-5.60); RDW 13.5 % (11.9-15.9); WHITE BLOOD COUNT 7.3 K/mm3 (4.0-10.0)
--- NOTE | 2018-09-15 13:15 | PDOC ---
Attending Attestation - Medical Decision Making Documentation prepared by MARIAA León, acting as medical billing assistant for Nakia Oneil MD. 09/15/18 16:18 <Anni Bob - Last Filed: 09/15/18 16:18> - Resident Resident Name: Miguelito Hoyt - ED Attending Attestation I have performed the following: I have examined & evaluated the patient, The case was reviewed & discussed with the resident, I agree w/resident's findings & plan - HPI HPI: 09/15/18 16:37 HPI 82 Y M, with PMH of HTN, DM, and BPH, presenting with abdominal pain for 1 month and chest pain for 1 day. Patient reports sharp, intermittent left-sided chest pain with associated dyspnea on exertion. He also complains of sharp, intermittent epigastric and LUQ pain that radiates to his back. Patient additionally reports frequent constipation. Denies fever, chills, palpitation, weakness, N, V, D, bladder problems, leg swelling, No sick contacts or travel. No new changes in medications. Allergies: NKA Past Medical History: HTN, DM, and BPH Social history: Lives with family. No smoking. No alcohol. No illicit drugs. Surgical history: None reported - Physicial Exam PE: 09/15/18 18:33 NAD, well appearing, PERRL, EOMI, MMM, nl conjunctiva, anicteric; neck supple. lungs clear, RRR, +reproducible chest wall TTP; abdomen soft diffuse tenderness ; no rebound or guarding. KING x4, no focal neuro deficits. No peripheral edema. normal color for ethnicity, WWP. - Medical Decision Making 09/15/18 13:14 I, Nakia Oneil MD, attest that this document has been prepared under my direction and personally reviewed by me in its entirety. I further attest, that it accurately reflects all work, treatment, procedures and medical decision -making performed by me. See HPI for details Vital signs reviewed, mild tachycardia 108 bpm. normotensive, no respiratory distress. Prior notes reviewed, including admissions, discharges and consultations. laboratory results and imaging reviewed, basic labs and lytes wnl, normal LFTs/ lipase. UA clear, no blood or infection CXR_no acute chest pathology Cardiac panel_neg trops x2, reproducible, so doubt ACS or arrythmia EKG normal sinus rhythm at 92 bpm, no interval abnormalities, narrow QRS, ST and T wave segments and morphology normal. Nonspecific T wave abnormalities ED course: rpt VS normal CT a/p neg for acute pathology, fat containing umbilical hernia, no obstruction ; renal cysts. given pepcid and GI cocktail, fluids. Pt informed of my clinical impression, treatment recommendations and disposition plan. All questions answered to patient's satisfaction and expressed understanding and comfort with this. Reasons for returning to the ED sooner discussed with the patient otherwise, follow up with primary care physician. At the time of discharge, the patient is alert, clinically improved, tolerating po and verbalizes understanding of instructions. Patient does not suffer from an acute life-threatening medical condition at this time he is safe for outpatient follow-up. 09/15/18 18:35 <Nakia Oneil - Last Filed: 09/15/18 18:38> Heart Score/ECG Review #1 ECG reviewed & interpreted by me at: 13:00 General ECG Interpretation: Sinus Rhythm 09/15/18 13:14 EKG normal sinus rhythm at 92 bpm, no interval abnormalities, narrow QRS, ST and T wave segments and morphology normal. Nonspecific T wave abnormalities <Nakia Oneil - Last Filed: 09/15/18 18:38>
[2018-09-15 13:35] LABS: URINE APPEARANCE CLEAR; URINE BILIRUBIN NEGATIVE (<2.0 mg/dL); URINE COLOR LTYELLOW; URINE GLUCOSE (UA) 3+ (NEGATIVE); URINE KETONE NEGATIVE (NEGATIVE); URINE LEUK ESTERASE NEGATIVE (NEGATIVE); URINE NITRITE NEGATIVE (NEGATIVE); URINE PROTEIN NEGATIVE (NEGATIVE); URINE UROBILINOGEN NEGATIVE mg/dL (0.2-1.0)
[2018-09-15 13:46] LABS: ALBUMIN 3.8 g/dl (3.4-5.0); ALK PHOS 81 U/L (45-117); ANION GAP 6 MMOL/L (8-16); BILIRUBIN,TOTAL 0.3 mg/dL (0.2-1); BLOOD UREA NITROGEN 16 mg/dL (7-18); CALCIUM 8.8 mg/dL (8.5-10.1); CHLORIDE 99 mmol/L (98-107); CO2 28 mmol/L (21-32); CREATININE 1.2 mg/dL (0.55-1.3); GLUCOSE,RANDOM 250 mg/dL (74-106); LIPASE 218 U/L (73-393); MAGNESIUM 1.9 mg/dL (1.8-2.4); N-TERMINAL BNP 99.9 pg/ml (5-450); POTASSIUM 4.3 mmol/L (3.5-5.1); SGOT/AST 21 U/L (15-37); SGPT/ALT 36 U/L (13-61); SODIUM 133 mmol/L (136-145); TOT PROT 7.6 g/dl (6.4-8.2)
--- NOTE | 2018-09-15 16:51 | EKG ---
Test Reason : Blood Pressure : / mmHG Vent. Rate : 092 BPM Atrial Rate : 092 BPM P-R Int : 178 ms QRS Dur : 086 ms QT Int : 318 ms P-R-T Axes : 063 057 071 degrees QTc Int : 393 ms NORMAL SINUS RHYTHM NONSPECIFIC ST AND T WAVE ABNORMALITY ABNORMAL ECG WHEN COMPARED WITH ECG OF 13-FEB-2017 15:15, NO SIGNIFICANT CHANGE WAS FOUND Confirmed by PEDRO PERALTA, LETY ([id number]) on 09/15/2018 4:51:28 PM Referred By: Confirmed By:LETY VASQUEZ MD
[2018-09-15 17:57] VITALS: BP 167/83; PULSE 75
== END 2018-09-15 17:57 | disposition home or self-care (01) ==
LOC: JER 12:10
PROC: 3E033GC Introduction of Other Therapeutic Substance into Peripheral Vein, Percutaneous Approach (ICD-10-PCS; principal; 2018-09-15)
DX: R07.89 Other chest pain (principal); K59.00 Constipation, unspecified; I10 Essential (primary) hypertension; E11.9 Type 2 diabetes mellitus without complications; K21.9 Gastro-esophageal reflux disease without esophagitis; N40.0 Benign prostatic hyperplasia without lower urinary tract symptoms
CPT/HCPCS: 36415; 71046-TC-FY; 74177-TC; 80053; 81003; 82550; 83690; 83735; 83880; 84484; 85025; 87086; 93005; 93010; 99282-25; J7030